=== PATIENT | female | born 1965 | race Caucasian/White ===

== ENCOUNTER → 2016-07-26 | Outpatient (CLI) | payer BC ==
--- NOTE | ~2016-07-26 | PFT ---
[id number] [facility] [address] [facility]. [place], [place] [address] [id number] O MR#: [id number] NAME: PADILLA PADILLA ROOM: SEX: F STUDY DATE/TIME: 07/27/2016 : 1965 AGE: 51 STUDY DESCRIPTION: Attending Physician: Latha Haile M.D. Referring Physician: Latha Haile M.D. Primary Care Physician: Latha Haile M.D. PULMONARY DIAGNOSTIC REPORT EXAM Pulmonary Function Test. Spirometry is essentially normal. No significant response to bronchodilators. FEV1 is 2.83 liters, 102% of predicted. Flow volume loop is unremarkable. Lung volumes are unremarkable, and diffusion capacity is essentially normal. PFTs unremarkable and essentially normal. Dictated by... Bertram Barragan/elif TD: 07/27/2016 17:41 JOB #: [id number] PULMONARY DIAGNOSTIC REPORT
--- NOTE | ~2016-07-26 | ST ---
Unit #: [id number] #: [id number] Patient: PADILLA PADILLA [id number] [facility]. [address] [address] [id number] O MR#: [id number] NAME: PADILLA PADILLA. : 1965 SEX: F STUDY DATE/TIME: 07/26/2016 UNIT: CEKG ROOM: STUDY DESCRIPTION: Attending Physician: Latha Haile M.D. Referring Physician: Latha Haile M.D. Primary Care Physician: Latha Haile M.D. CARDIOLOGY REPORT EXAM Stress test. FINDINGS Baseline EKG: Normal sinus rhythm. Normal EKG. Resting heart rate 66 per minute. Blood pressure 127/75. PROCEDURE This 51-year-old patient was exercised on a Howie protocol for 9 minutes and 2 seconds, achieving heart rate of 150 per minute which is more than the target heart rate. Peak blood pressure 142/82. Maximum workload obtained was 10.1 METs. Exercise was terminated because of fatigue. No ischemic changes noted. No arrhythmias noted. Blood pressure response was normal. INTERPRETATION 1. Negative exercise stress for ischemia. 2. No arrhythmias noted. 3. Normal blood pressure response to exercise. Dictated by... Bertram Oconnell/willard TD: 07/26/2016 17:23 JOB #: [id number] CARDIOLOGY REPORT X Delano Woods MD CARDIOLOGY REPORT
== END | disposition home or self-care (01) ==
LOC: CEKG 07:27
DX: R07.9 Chest pain, unspecified (principal); R06.00 Dyspnea, unspecified
CPT/HCPCS: 93017; 94060; 94726; 94729

== ENCOUNTER 2016-08-24 18:37 | Emergency (ER) | payer BC ==
--- NOTE | ~2016-08-24 | EKG ---
PATIENT: PADILLA PADILLA UNIT #: [id number] Ventricular Rate: 70 BPM Atrial Rate: 70 BPM P-R Interval: 150 ms QRS Duration: 74 ms Q-T Interval: 428 ms QTC Calculation(Bezet): 462 ms P [place]: 79 degrees Calculated R [place]: 78 degrees Calculated T [place]: 40 degrees Diagnosis Line: Normal sinus rhythm Diagnosis Line: Possible Left atrial enlargement Diagnosis Line: Septal infarct , age undetermined Diagnosis Line: Abnormal ECG Diagnosis Line: When compared with ECG of 20-JAN-2016 18:50, Diagnosis Line: Septal infarct is now Present Diagnosis Line: Confirmed by MAU HERNANDEZ MD ([id number]) on 08/24/2016 Diagnosis Line: 11:02:51 PM INTERPRETING MD: DAVID STANLEY
[2016-08-24 19:06] LABS: URINE SOURCE CLEAN CATCH
[2016-08-24 19:11] LABS: URINE APPEARANCE CLEAR; URINE BILIRUBIN NEG (NEG); URINE BLOOD 1+ (NEG); URINE COLOR YELLOW; URINE GLUCOSE NEG (NEG); URINE KETONE 1+ (NEG); URINE LEUKOCYTE ESTERASE TRACE (NEG); URINE NITRATE NEG (NEG); URINE PROTEIN NEG (NEG); URINE SPECIFIC GRAVITY 1.005 (1.003-1.035); URINE UROBILINOGEN 0.2 MG/DL (NEG)
[2016-08-24 19:14] LABS: URBCS1 AUWI 0-2 /[HPF] (0-2); URINE BACTERIA AUWI NEG (NEGATIVE); URINE SQUAMOUS EPITHELIAL CELL NONE SEEN /[HPF]
[2016-08-24 19:16] LABS: BASOPHIL# 0.1 X10e3 (0-0.3); BASOPHIL% 1.1 % (0-2.5); EOSINOPHIL# 0.1 X10e3 (0-0.7); HEMATOCRIT 42.1 % (35.0-45.0); HEMOGLOBIN 13.9 gm/dL (12.0-16.0); LYMPHOCYTE# 2.6 X10e3 (1.0-3.5); LYMPHOCYTE% 34.1 % (17.0-45.0); MEAN CELL VOLUME 95.2 FL (83-96); MEAN CORPUSCULAR HEMOGLOBIN 31.3 PG (28-34); MEAN CORPUSCULAR HGB CONC 32.9 g/dL (30-36); MEAN PLATELET VOLUME 8.8 FL (6.5-11.5); MONOCYTE# 0.4 X10e3 (0-1.0); MONOCYTE% 5.2 % (3.0-12.0); NEUTROPHIL# 4.4 X10e3 (1.5-7.1); NEUTROPHIL% 58.6 % (40-75); PLATELET COUNT 267 X10e3 (140-420); RED BLOOD COUNT 4.43 X10e (3.90-5.30); RED CELL DISTRIBUTION WIDTH 13.4 % (11.0-15.5); WHITE BLOOD COUNT 7.5 X10e3 (4.0-10.5)
[2016-08-24 19:23] LABS: CULTURE INDICATED? NO
[2016-08-24 19:24] LABS: DIFF IND NO
[2016-08-24 19:37] LABS: CALCIUM SERUM 9.2 mg/dL (8.4-10.2); CREATININE SERUM 0.7 mg/dL (0.6-1.4); GLOM FILT RATE Estimated 99.6 mL/min (>60)
== END 2016-08-24 20:40 | disposition home or self-care (01) ==
LOC: CED 18:37
PROVIDERS: Emergency Medicine
DX: R42 Dizziness and giddiness (principal); T43.295A Adverse effect of other antidepressants, initial encounter; F41.9 Anxiety disorder, unspecified; F17.200 Nicotine dependence, unspecified, uncomplicated
CPT/HCPCS: 36415; 80048; 81003; 82947; 85025; 93005; 99283